=== PATIENT | male | born 1950 | race Caucasian/White ===

== ENCOUNTER 2016-07-02 16:20 | Observation (INO) | payer OTHER ==
[2016-07-02 16:27] VITALS: BMI 24.4
--- NOTE | 2016-07-02 16:46 | DR.GENAD ---
HPI - PCP [facility] Phys[facility]: [facility] - HPI Comment HPI Comment: HISTORY BELOW. - Complaint/Symptoms Chief Complaint Doctors Comments: DIZZINESS, NEAR SYNCOPAL EPISODES AND VERTIGO FOT FEW DAYS, MECLIZINE IS NOT HELPING. HE IS ATAXIC. GOT WORSE FEW HOURS AGO AND WAS DIAPHORETIC. PATIENT HAVE HEMORRHIS ALSO THAT IS BOTHERING HIM. HE RETAIN HIS URINE FOR SOME TIME BEFORE VOIDING. NO FEVER. HE [facility]ES [facility] [place]. Chief Complaint:: PATIENT HE HAS BEEN WEAK AND DIZZY FOR A COUPLE OF HOURS. PATIENT STATED HE HAS HAD PROBLEMS PEEING FOR 4 DAYS AND HEMIRROIDS FOR ABOUT A WEEK - Nurses notes reviewed Nurses Notes Review: Yes - Source History Provided: Patient - Mode of Arrival Mode of Arrival: Ambulatory - Timing Onset of Chief Complaint: 06/25/16 Came on: Gradually - Duration Duration: Constant Duration: Days - Severity Severity: Moderate PMH - PMH Past Medical History: Yes Past Medical History: Dyslipidemia, Hypertension Past Medical History Comment: PTSD Past Surgical History: Yes Surgical History: Tonsillectomy - Family History History of Family Medical Conditions: Yes Family Medical History: Diabetes Mellitus - Social History Does patient currently use any type of tobacco product: Yes Have you used tobacco products in the last 12 months: Yes Type of Tobacco Use: Cigarettes How many years tobacco product used: 30 Does any household member use tobacco: No Alcohol Use: None Do you use any recreational Drugs:: No Lives With: Family Lives Where: Home - infectious screening In the last 2 months have you had wt loss of >10#?: NO Have you had fever, night sweats or hemotysis?: No Have you traveled outside the country in the last 6 months?: No Isolation: Standard ROS - Review of Systems Constitutional: Diaphoresis, Weakness, Fatigue. negative: Chills, Fever Eyes: No Symptoms Reported. negative: Eye Pain, Discharge ENTM: No Symptoms Reported. negative: Ear Pain, Nose Discharge, Nose Congestion , Throat Pain Respiratoy: Short of Breath. negative: Productive Cough, Non-Productive Cough, Wheezing, Hemoptysis Cardiovascular: Chest Pain, Syncope (NEAR SYNCOPAL FEELING). negative: Edema, Palpitations Gastrointestinal/Abdominal: No Symptoms Reported, Nausea. negative: Abdominal Pain, Constipation, Vomiting Genitourinary: No Symptoms Reported. negative: Dysuria, Frequency, Hematuria Neurological: Weakness, Dizziness. negative: Headache Musculoskeletal: Muscle Pain Integumentary: No Symptoms Reported Hematologic/Lymphatic: No Symptoms Reported Endocrine: No Symptoms Reported All Other Systems: Reviewed and Negative PE - Vital Signs Vitals: Temperature 98.6 F Pulse Rate 81 Respiratory Rate 16 Blood Pressure 142/63 O2 Sat by Pulse Oximetry 100 - General Limitations: No Limitations General Appearance: Alert - Head Head Exam: Normal Inspection - Eyes Eye exam: Normal Appearance - ENT ENT Exam: Normal External Ear Exam External Ear Exam: Normal External Inspection TM/Canal Exam: Bilateral Normal Nose Exam: Normal Nose Exam Mouth Exam: Normal Inspection Throat Exam: Normal Inspection - Neck Neck Exam: Trachea Midline. negative: Tenderness, Meningismus, Lymphadenopathy - Chest Chest Inspection: Symmetric Chest Wall Rise - Respiratory Respiratory Exam: Normal Lung Sounds Bilat Respiratory Exam: Bilateral Clear to Auscultation - Cardiovascular Cardiovascular Exam: Regular Rate, Normal Rhythm, Normal Heart Sounds - Abdominal Exam Abdominal Exam: Normal Bowel Sounds, Soft. negative: Tenderness - Extremities Extremities Exam: Normal Inspection - Back Back Exam: Normal Inspection - Neurologic Neurological Exam: Alert, Oriented X3, CN II-XII Intact, Reflexes Normal. negative: Motor Sensory Deficit - Skin Skin Exam: Normal Color MDM - Additional Information Additional Information Obtained From: Family - Differential Diagnosis Differential Diagnosis: DIZZINESS, VERTIGO, CVA, TIA, [place], Course - Treatment Treatment: SEE ORDERS - Consultation Consultation Comments: DISCUSS PATIENT WITH DR. JACOBSEN. HE WILL ADMIT PATIENT. DR. LI AT [facility] SAID PATIENT CAN STAY AT THIS FACILITY. INFORMATION FORWARDED TO US. - Education/Counseling Education/Counseling: Patient, Education Educated On: Diagnosis, Needs for Follow Up ROR - Labs Reviewed Laboratory Results Reviewed?: Yes Result Diagrams: 07/02/16 16:55 07/02/16 16:55 Laboratory: WBC 9.5 X10^3/uL (3.6-10.0) 07/02/16 16:55 RBC 5.26 X10^6/uL (4.7-6.0) 07/02/16 16:55 Hgb 15.6 g/dL (13.5-18.0) 07/02/16 16:55 Hct 45.3 % (42.0-54.0) 07/02/16 16:55 MCV 86.1 fL (80.0-100.0) 07/02/16 16:55 MCH 29.7 pg (27.0-34.0) 07/02/16 16:55 MCHC 34.5 g/dL (33.0-35.0) 07/02/16 16:55 RDW 13.8 % (11.6-16.5) 07/02/16 16:55 Plt Count 287 X10^3/uL (150.0-450.0) 07/02/16 16:55 MPV 7.2 fL (7.4-11.0) L 07/02/16 16:55 Neut % 58.8 % (42.0-75.0) 07/02/16 16:55 Lymph % 27.5 % (21.0-51.0) 07/02/16 16:55 [place] % 10.8 % (0.0-13.0) 07/02/16 16:55 Eos % 2.2 % (0.9-2.9) 07/02/16 16:55 Baso % 0.7 % (0.2-1.0) 07/02/16 16:55 Neut # 5.6 x10^3/uL (2.2-4.8) H 07/02/16 16:55 Lymph # 2.6 X10^3/uL (1.3-2.9) 07/02/16 16:55 [place] # 1.0 x10^3/uL (0.3-0.8) H 07/02/16 16:55 Eos # 0.2 x10^3/uL (0.0-0.2) 07/02/16 16:55 Baso # 0.1 X10^3/uL (0.0-0.1) 07/02/16 16:55 Absolute Nucleated RBC 0.0 /100WBC 07/02/16 16:55 Sodium 136 mmol/L (136-145) 07/02/16 16:55 Corrected Sodium 136 mmol/L (136-145) 07/02/16 16:55 Potassium 3.8 mmol/L (3.5-5.1) 07/02/16 16:55 Chloride 100 mmol/L (98-107) 07/02/16 16:55 Carbon Dioxide 28.1 mmol/L (21-32) 07/02/16 16:55 BUN 12 mg/dL (7-18) 07/02/16 16:55 Creatinine 1.12 mg/dL (0.70-1.30) 07/02/16 16:55 Est GFR (MDRD) Af Amer > 60 (>60) 07/02/16 16:55 Est GFR (MDRD) Non-Af > 60 (>60) 07/02/16 16:55 Glucose 111 mg/dL (65-99) H 07/02/16 16:55 Calcium 9.0 mg/dL (8.5-10.1) 07/02/16 16:55 Corrected Calcium TNP 07/02/16 16:55 Total Bilirubin 0.30 mg/dL (0.2-1.0) 07/02/16 16:55 AST 13 Units/L (15-37) L 07/02/16 16:55 ALT 20 Units/L (12-78) 07/02/16 16:55 Alkaline Phosphatase 74 Units/L (46-116) 07/02/16 16:55 Creatine Kinase 36 Units/L (39-308) L 07/02/16 23:00 CK-MB (CK-2) < 1.0 ng/mL (0-4.0) 07/02/16 23:00 CK/CKMB % Calc 2.8 % (<4) 07/02/16 23:00 Troponin I < 0.02 ng/mL (0-1.5) 07/02/16 23:00 Total Protein 7.7 g/dL (6.4-8.2) 07/02/16 16:55 Albumin 3.7 g/dL (3.4-5.0) 07/02/16 16:55 Globulin 4.0 g/dL (2.5-4.5) 07/02/16 16:55 Albumin/Globulin Ratio 0.9 Ratio (1.1-2.1) L 07/02/16 16:55 Specimen Type Clean catch urine 07/02/16 17:30 Urine Color Pale yellow (YELLOW) 07/02/16 17:30 Urine Appearance Clear (CLEAR) 07/02/16 17:30 Urine pH 7.0 (5.0 - 8.0) 07/02/16 17:30 Ur Specific [place] 1.010 (1.000-1.030) 07/02/16 17:30 Urine Protein Negative (NEGATIVE) 07/02/16 17:30 Urine Glucose (UA) Negative (NEGATIVE) 07/02/16 17:30 Urine Ketones Negative (NEGATIVE) 07/02/16 17:30 Urine Occult Blood 1+ (NEGATIVE) 07/02/16 17:30 Urine Nitrite Negative (NEGATIVE) 07/02/16 17:30 Urine Bilirubin Negative (NEGATIVE) 07/02/16 17:30 Urine Urobilinogen Normal (NORMAL) 07/02/16 17:30 Ur Leukocyte Esterase Negative (NEGATIVE) 07/02/16 17:30 Urine RBC Negative /HPF (NEGATIVE) 07/02/16 17:30 Urine WBC Rare /HPF (NEGATIVE) 07/02/16 17:30 Ur Squamous Epith Cells Negative /HPF (NEGATIVE) 07/02/16 17:30 Urine Bacteria Negative /HPF (NEGATIVE) 07/02/16 17:30 Ur Culture Indicated? No/not indicated 07/02/16 17:30 - XRAY XRAY Interpreted by: Radiologist XRAY Findings: REPORT DISCUSS WITH PATIENT. - EKG Rhythm: NSR (EKG NOTED) - Diagnosis Discharge Problem: Dizziness, Near syncope, Urinary retention, Vertigo Hemorrhoids Qualifiers: Hemorrhoid type: second degree Qualified Code(s): K64.1 - Second degree hemorrhoids - Discharge Plan Disposition: 09 ADMITTED INPATIENT Condition: Stable - Follow ups/Referrals - Instructions
[2016-07-02 17:00] LABS: BASOPHILS # (AUTO) 0.1 X10^3/uL (0.0-0.1); BASOPHILS % (AUTO) 0.7 % (0.2-1.0); EOSINOPHILS # (AUTO) 0.2 x10^3/uL (0.0-0.2); EOSINOPHILS % (AUTO) 2.2 % (0.9-2.9); HEMATOCRIT 45.3 % (42.0-54.0); HEMOGLOBIN 15.6 g/dL (13.5-18.0); LYMPHOCYTES # (AUTO) 2.6 X10^3/uL (1.3-2.9); LYMPHOCYTES % (AUTO) 27.5 % (21.0-51.0); MEAN CORPUSCULAR HEMOGLOBIN 29.7 pg (27.0-34.0); MEAN CORPUSCULAR HGB CONC 34.5 g/dL (33.0-35.0); MEAN CORPUSCULAR VOLUME 86.1 fL (80.0-100.0); MEAN PLATELET VOLUME 7.2 fL (7.4-11.0); MONOCYTES % (AUTO) 10.8 % (0.0-13.0); NEUTROPHILS # (AUTO) 5.6 x10^3/uL (2.2-4.8); NEUTROPHILS % (AUTO) 58.8 % (42.0-75.0); PLATELET COUNT 287 X10^3/uL (150.0-450.0); RED BLOOD COUNT 5.26 X10^6/uL (4.7-6.0); RED CELL DISTRIBUTION WIDTH 13.8 % (11.6-16.5); WHITE BLOOD COUNT 9.5 X10^3/uL (3.6-10.0)
[2016-07-02 17:19] LABS: BLOOD UREA NITROGEN 12 mg/dL (7-18); CARBON DIOXIDE 28.1 mmol/L (21-32); CHLORIDE 100 mmol/L (98-107); COR NA(FOR HYPERGLY) 136 mmol/L (136-145); CREATININE 1.12 mg/dL (0.70-1.30); GLUCOSE 111 mg/dL (65-99); SODIUM 136 mmol/L (136-145); TROPONIN I < 0.02 ng/mL (0-1.5); eGFR BLACK RACES > 60 (>60); eGFR NON BLACK RACES > 60 (>60)
[2016-07-02 17:24] LABS: ALANINE AMINOTRANSFERASE 20 Units/L (12-78); ALBUMIN 3.7 g/dL (3.4-5.0); ALKALINE PHOSPHATASE 74 Units/L (46-116); ASPARTATE AMINO TRANSFERASE 13 Units/L (15-37); CKMB % 2.6 % (<4); CREATINE KINASE 39 Units/L (39-308); CREATINE KINASE MB < 1.0 ng/mL (0-4.0); TOTAL PROTEIN 7.7 g/dL (6.4-8.2)
[2016-07-02 17:38] LABS: BILIRUBIN,URINE NEGATIVE (NEGATIVE); BLOOD/HEMOGLOBIN,URINE 1+ (NEGATIVE); GLUCOSE, URINE NEGATIVE (NEGATIVE); KETONES,URINE NEGATIVE (NEGATIVE); LEUKOCYTE ESTERASE ,URINE NEGATIVE (NEGATIVE); NITRITES,URINE NEGATIVE (NEGATIVE); PROTEIN,URINE NEGATIVE (NEGATIVE); UROBILINOGEN,URINE NORMAL (NORMAL)
--- NOTE | 2016-07-02 17:41 | CT ---
HISTORY: Mental status changes Study: CT brain without contrast Comparison: None Technique: Multiple axial images of the brain were obtained from the skull base to the vertex without administr ation of IV contrast. Findings: No acute intraparenchymal hemorrhage or mass can be identified. No extra-axial fluid collections ar e seen. No alteration in the attenuation of the brain parenchyma can be identified to suggest acute or subacute ischemic change. The ventricular system is symmetric and nondilated. The extracranial structures are grossly unremarkable. IMPRESSION: 1. No acute intracranial process can be identified. Reported By:
--- NOTE | 2016-07-02 17:44 | RAD ---
HISTORY: Chest pain. Study: Chest one view Comparison: None. Findings: The trachea is midline. The cardiac silhouette is unremarkable. The lungs are clear without focal infiltrate or effusion. The bony thorax is unremarkable. IMPRESSION: 1. No acute cardiopulmonary disease. Reported By:
[2016-07-02 17:47] LABS: APPEARANCE,URINE CLEAR (CLEAR); COLOR,URINE PALE YELLOW (YELLOW)
[2016-07-02 17:49] LABS: RBC,URINE NEGATIVE /HPF (NEGATIVE)
[2016-07-02 17:50] LABS: BACTERIA,URINE NEGATIVE /HPF (NEGATIVE); SQUAMOUS EPITHELIAL CELL,UR NEGATIVE /HPF (NEGATIVE)
[2016-07-02] MEDS ORDERED: ANTIVERT TAB 25 MG PO ONE (18:03)
[2016-07-02] MEDS ORDERED: ANTIVERT TAB 25 MG ONE (18:14)
[2016-07-02] MEDS ORDERED: NS 1000 ML 1,000 ML IV SCH (23:00)
[2016-07-02 23:47] LABS: CKMB % 2.8 % (<4); CREATINE KINASE 36 Units/L (39-308); CREATINE KINASE MB < 1.0 ng/mL (0-4.0); TROPONIN I < 0.02 ng/mL (0-1.5)
[2016-07-03 06:16] LABS: BASOPHILS # (AUTO) 0.1 X10^3/uL (0.0-0.1); BASOPHILS % (AUTO) 0.8 % (0.2-1.0); EOSINOPHILS # (AUTO) 0.3 x10^3/uL (0.0-0.2); EOSINOPHILS % (AUTO) 3.1 % (0.9-2.9); HEMATOCRIT 43.2 % (42.0-54.0); HEMOGLOBIN 14.8 g/dL (13.5-18.0); LYMPHOCYTES # (AUTO) 3.1 X10^3/uL (1.3-2.9); LYMPHOCYTES % (AUTO) 37.7 % (21.0-51.0); MEAN CORPUSCULAR HEMOGLOBIN 29.7 pg (27.0-34.0); MEAN CORPUSCULAR HGB CONC 34.4 g/dL (33.0-35.0); MEAN CORPUSCULAR VOLUME 86.5 fL (80.0-100.0); MEAN PLATELET VOLUME 7.3 fL (7.4-11.0); MONOCYTES # (AUTO) 0.9 x10^3/uL (0.3-0.8); MONOCYTES % (AUTO) 10.6 % (0.0-13.0); NEUTROPHILS # (AUTO) 3.9 x10^3/uL (2.2-4.8); NEUTROPHILS % (AUTO) 47.8 % (42.0-75.0); PLATELET COUNT 271 X10^3/uL (150.0-450.0); RED BLOOD COUNT 4.99 X10^6/uL (4.7-6.0); RED CELL DISTRIBUTION WIDTH 13.7 % (11.6-16.5); WHITE BLOOD COUNT 8.2 X10^3/uL (3.6-10.0)
[2016-07-03 06:53] LABS: ALANINE AMINOTRANSFERASE 18 Units/L (12-78); ALBUMIN 3.3 g/dL (3.4-5.0); ALKALINE PHOSPHATASE 63 Units/L (46-116); ASPARTATE AMINO TRANSFERASE 12 Units/L (15-37); BLOOD UREA NITROGEN 11 mg/dL (7-18); CALCIUM 8.8 mg/dL (8.5-10.1); CARBON DIOXIDE 28.8 mmol/L (21-32); CHLORIDE 103 mmol/L (98-107); CHOLESTEROL 144 mg/dL (0-200); COR CA(FOR HYPOALB) 9.4 mg/dL (8.5-10.1); CREATINE KINASE 33 Units/L (39-308); CREATINE KINASE MB < 1.0 ng/mL (0-4.0); GLUCOSE 100 mg/dL (65-99); HDL CHOLESTEROL 24 mg/dL (40-60); SODIUM 139 mmol/L (136-145); TRIGLYCERIDES 167 mg/dL (0-150); TROPONIN I < 0.02 ng/mL (0-1.5); eGFR BLACK RACES > 60 (>60); eGFR NON BLACK RACES > 60 (>60)
[2016-07-03 08:15] VITALS: BP 127/63
[2016-07-03] MEDS ORDERED: FLOMAX PO SCH (10:00)
== END 2016-07-03 12:55 | disposition home or self-care (01) | DRG 312 ==
LOC: ER 16:42 → OBS 22:30
PROVIDERS: ADMIT Obstetrics & Gynecology Obstetrics; ATTEND Obstetrics & Gynecology Obstetrics
DX: R55 Syncope and collapse (principal); R42 Dizziness and giddiness; R33.8 Other retention of urine; K64.1 Second degree hemorrhoids; I10 Essential (primary) hypertension; F41.8 Other specified anxiety disorders; F43.10 Post-traumatic stress disorder, unspecified; Z79.899 Other long term (current) drug therapy
CPT/HCPCS: 36415; 70450; 71010; 80053; 80061; 81001; 82550; 82553; 83735; 84484; 85025; 85610; 85730; 93005; 93010; 94760; 96365; 99284; A4222; G0378